=== PATIENT | male | born 1935 | race Caucasian/White ===

== ENCOUNTER 2018-07-26 13:33 | Inpatient (IN) | payer MEDICARE, BC ==
[2018-07-26 14:28] LABS: Bilirubin Negative (Negative); Blood, Urine Moderate (Negative); Clarity CLEAR (Clear); Glucose, Urine (Dipstick) Negative (Negative); Leukocyte Negative (Negative); Nitrite Negative (Negative); Protein, Urine (Dipstick) Trace mg/dL (Neg-Trace); Specific Gravity, Urine 1.023 (1.002-1.036); Urobilinogen 0.2 mg/dL (0.2-1.0)
[2018-07-26 14:34] LABS: Bacteria/HPF None Seen HPF (None Seen); Hyaline Casts/LPF 0-3 HYALINE CAST LPF (0-3 Hyaline); Pathc Cast-AUWi Flag 0.58 (0-2.49); Squamous Epithelial 0-3 HPF (0-3); WBC/HPF 0-3 HPF (0-3)
--- NOTE | 2018-07-26 15:15 | CT ---
CT BRAIN WITHOUT CONTRAST: Date: 07/26/18 HISTORY: Fall. FINDINGS: There are changes of cortical atrophy and chronic small vessel ischemic disease. No evidence of acute infarct, hemorrhage, midline shift, or abnormal extra-axial fluid collections are seen. The ventricu lar size is appropriate and the basilar cisterns are patent. The bony calvarium is intact. The visual ized paranasal sinuses and mastoid air cells are well aerated. IMPRESSION: No CT evidence of acute intracranial process. POS: [facility]
--- NOTE | 2018-07-26 15:25 | CT ---
CT CERVICAL SPINE WITH CORONAL AND SAGITTAL REFORMATIONS: Date: 07/26/18 HISTORY: Fall, neck pain. FINDINGS/IMPRESSION: Cervical lordosis is present. Multilevel degenerative changes are noted in the cervical spine. No fra cture, subluxation, or facet malalignment is seen. There are pleural calcifications in the lung apice s. POS: [facility]
--- NOTE | 2018-07-26 15:31 | CT ---
CT FACIAL BONES WITH CORONAL AND SAGITTAL REFORMATIONS 07/26/18 HISTORY: Fall, facial pain. FINDINGS: No facial bone fractures seen. No temporomandibular dislocation identified. There is mild mucosal d isease in the paranasal sinuses. No air fluid levels are noted in the paranasal sinuses. IMPRESSION: No CT evidence of facial bone fracture. POS: [facility]
--- NOTE | 2018-07-26 15:35 | RAD ---
RIGHT HIP TWO VIEWS: 07/26/18 HISTORY: Right hip pain and deformity. FINDINGS/IMPRESSION: There is a comminuted displaced intertrochanteric fracture of the right proximal femur. POS: [facility]
--- NOTE | 2018-07-26 15:36 | RAD ---
AP PELVIS: 07/26/18 HISTORY: Injury, right hip pain. FINDINGS/IMPRESSION: There is an intertrochanteric fracture of the right proximal femur. POS: [facility]
--- NOTE | 2018-07-26 15:50 | RAD ---
RIGHT HAND 3 VIEWS: Date: 07/26/18 HISTORY: Fall, right hand pain. FINDINGS/IMPRESSION: Degenerative changes are present. No fracture or dislocation is identified. POS: [facility]
--- NOTE | 2018-07-26 15:50 | RAD ---
LEFT HIP 2 VIEWS: Date: 07/26/18 HISTORY: Left hip pain, fall. FINDINGS/IMPRESSION: No acute fracture or dislocation is seen. POS: [facility]
[2018-07-26 15:51] LABS: #Lymphocytes 1.2 thou/uL (1.20-3.40); #Monocytes 1.6 thou/uL (0.11-0.59); %Basophils 0.2 % (0.0-1.0); %Eosinophils 0.1 % (0.0-10.0); %Lymphocytes 8.1 % (21.0-51.0); %Monocytes 10.7 % (0.0-10.0); %Neutrophils 80.9 % (42.0-75.0); Hemoglobin 14.3 g/dL (14.0-18.0); Mean Corpuscular HGB CONC 33.1 g/dL (32.0-36.0); Mean Corpuscular Hemoglobin 31.7 pg (27.0-31.0); Mean Corpuscular Volume 95.9 fL (78.0-98.0); Mean Platelet Volume 8.7 fL (7.4-10.4); Platelet Count 129 thou/uL (130-400); RBC Distribution Width 12.8 % (11.5-14.5); Red Blood Cell (RBC) Count 4.52 mill/uL (4.70-6.10); White Blood Cell (WBC) Count 14.8 thou/uL (4.8-10.8)
--- NOTE | 2018-07-26 15:51 | RAD ---
LEFT HAND 3 VIEWS: Date: 07/26/18 HISTORY: Injury, left hand pain. FINDINGS: There are postop changes of disarticulation at the second MCP joint. Degenerative changes are present . No acute fracture or dislocation is identified. POS: [facility]
[2018-07-26 15:57] LABS: INR-International Normal Ratio 1.6; PTT 30.9 SEC (22.9-36.1); Prothrombin Time 19.1 SEC (12.0-14.7)
--- NOTE | 2018-07-26 16:05 | RAD ---
RIGHT ELBOW FOUR VIEWS: 07/26/18 HISTORY: Patient status post fall with right elbow pain. There are some arthritic changes of the elbow. There is no evidence of joint effusion or fracture. IMPRESSION: No acute injury. POS: [facility]
[2018-07-26 16:08] LABS: ALT (SGPT) 31 U/L (8-55); AST (SGOT) 55 U/L (5-34); Alkaline Phosphatase 66 U/L (40-150); Anion Gap 13 mmol/L (10-20); BUN (Urea Nitrogen) 13 mg/dL (8.4-25.7); Bilirubin, Total 1.9 mg/dL (0.2-1.2); CK (CPK) 932 U/L (30-200); Calc. Creatinine Clearance 0 mL/min (70-130); Calcium 8.6 mg/dL (7.8-10.44); Carbon Dioxide 25 mmol/L (23-31); Chloride 106 mmol/L (98-107); Estimated GFR-MDRD Greater than 90; Globulin 2.9 g/dL (2.4-3.5); Glucose 124 mg/dL (83-110); Potassium 4.4 mmol/L (3.5-5.1); Protein, Total 6.9 g/dL (5.8-8.1); Sodium 140 mmol/L (136-145)
[2018-07-26] MEDS ORDERED: Dextrose 5% in Water 1,000 ML IV PRN (16:30)
[2018-07-26] MEDS ORDERED: Dextrose 50% Abboject 50 ML SYRINGE SLOW IVP PRN (16:30)
[2018-07-26] MEDS ORDERED: traMADol HCl 50 MG TAB PO PRN (16:30)
[2018-07-26] MEDS ORDERED: Morphine 4 MG/ML VIAL SLOW IVP PRN (17:15)
[2018-07-26] MEDS ORDERED: Ketorolac Tromethamine 30 MG/ML VIAL ONE (18:22)
--- NOTE | 2018-07-26 19:01 | PDOC.EVN ---
Event Note - Event Note Event Note: 1 dose of 2.5 mg Vit k - confirmed with Dr Abraham.
[2018-07-26] MEDS ORDERED: Phytonadione 10 MG/ML AMP PO SCH (19:30)
--- NOTE | 2018-07-26 19:36 | HP ---
TRAUMA SURGEON: Dr. Crystal. TRAUMA ACTIVATION: Not applicable. HISTORY OF PRESENT ILLNESS: This is an 83-year-old gentleman, who presented to [facility] via EMS, status post multiple falls. Per the patient, he was leaving dinner last night with a friend when he slipped and fell outside of his car. The patient was able to ambulate after that and went home. He remembers getting undressed and going to bed. However, this morning, he was found on the floor by his neighbor. The patient does not remember the events surrounding the second fall nor does he remember anything until he woke up on the floor. The patient was seen and evaluated in the emergency room and found to have a right hip fracture. Orthopedic Surgery was notified and Trauma Service was asked to admit. Upon my evaluation, the patient has a chief complaint of right hip pain, approximately 4/10. The patient states pain is worsened with movement and improved with pain medications and rest. Family is at bedside. ALLERGIES: NONE. HOME MEDICATIONS: Include Coumadin 5 mg daily. CHRONIC MEDICAL ILLNESSES: Atrial fibrillation; history of non-Hodgkin's lymphoma, in remission; venous reflux, status post vein stripping; coronary artery disease; hypothyroidism; and hypertension. PAST SURGICAL HISTORY: Significant for permanent pacemaker implantation, bilateral lower extremity venous stripping, left index finger amputation, exploratory laparotomy for abdominal mass associated with lymphoma, cholecystectomy, chemo port placement, cataract surgery, Mohs procedure for basal cell carcinoma and squamous cell carcinoma, and kyphoplasty. SOCIAL HISTORY: The patient lives at home. Drinks occasionally. Denies illicit drug use and is a nonsmoker. REVIEW OF SYSTEMS: A 10-point review of systems was performed and essentially negative except as indicated in the HPI. FAMILY HISTORY: Noncontributory in this age patient. PHYSICAL EXAMINATION: VITAL SIGNS: Most recent vital signs include temperature 97.7, pulse 72, respirations 18, O2 saturation 99% on room air, and blood pressure 123/75. GENERAL: Elderly-appearing male, in no acute distress, resting in bed. HEENT: Head, normocephalic. There is contusion over the patient's left eye. Eyes, pupils are PERRLA. Extraocular movements are intact. Oral mucosa dry. NECK: Supple. Trachea is midline. There is no tenderness to palpation. CHEST/PULMONARY: Chest is atraumatic. Nontender to palpation. Normal work of breathing and symmetric rise. CARDIOVASCULAR: Regular rate and rhythm. No obvious murmurs, rubs, or gallops. GASTROINTESTINAL: Abdomen is soft, nontender, and nondistended. MUSCULOSKELETAL: Back exam is reported as being within normal limits. 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 There are bilateral contusions to the dorsal aspects of both hands. There is an abrasion of the posterior right elbow. Lower extremities, right lower extremity is shortened and externally rotated. Range of motion is limited secondary to pain. There is bilateral lower extremity edema, right greater than left. NEURO: No focal deficit is noted. LABORATORY FINDINGS: WBC 14.8, hemoglobin 14.3, hematocrit 43.3, and platelet count 129. INR is 1.6. Sodium 140, potassium 4.4, chloride 106, carbon dioxide 25, BUN 13, creatinine 0.78, and glucose 124. T-bili 1.9, AST 55, and ALT 31. CK 932. Troponin 0.012. Urinalysis with microscopic hematuria and some ketonuria. RADIOGRAPHIC FINDINGS: CT of the C-spine was negative for acute fracture or dislocation. CT of the brain was negative for acute intracranial abnormality. X-ray of the left hip was negative for fracture or dislocation. X-ray of bilateral hands were negative for bony fracture or dislocation. CT of the face was negative for bony fracture. Right elbow x-ray negative for acute fracture or dislocation. X-ray of the pelvis demonstrated a comminuted and displaced right hip fracture. X-ray of the right hip demonstrated the same. ASSESSMENT: 1. Status post multiple falls in the last 24 hours, one of which was unwitnessed. 2. Right hip fracture. 3. Acute traumatic pain. 4. History of atrial fibrillation, on chronic anticoagulation, status post permanent pacemaker. 5. History of hypothyroidism. 6. History of hypertension. 7. History of non-Hodgkin's lymphoma. 8. History of coronary artery disease. 9. Elevated CK. 10. Elevated bilirubin. PLAN: Admit to Trauma Services. The patient should be admitted to the telemetry unit given unwitnessed fall. Once the patient is able to ambulate, we will check orthostatic vital signs. Orthopedic Surgery has been notified of the patient's injury and will see and evaluate the patient. They tentatively plan for operative intervention tomorrow. The patient should be n.p.o. after midnight. Pain management with p.o. and IV analgesics. Gentle IV fluid hydration. Hospital Medicine consult for medical management and syncopal workup. Postoperative PT and OT. DVT and gastritis prophylaxis as appropriate. Follow CK. Plan for admission was discussed with the patient and family at bedside and all questions were answered at the time of this dictation. The patient was seen and evaluated with Dr. Crystal. Job ID: [id number]
[2018-07-26] MEDS: Ketorolac Tromethamine 30 MG/ML VIAL IVP SCH ×2 (19:45→23:12)
[2018-07-26] MEDS: Acetaminophen 500 MG TAB PO SCH ×2 (19:50→23:11)
[2018-07-26] MEDS: traMADol HCl 50 MG TAB PO SCH ×2 (19:50→23:13)
[2018-07-26] MEDS: Famotidine 20 MG TAB PO SCH (20:34)
[2018-07-26] MEDS: Senokot S 8.6-50 MG TAB PO SCH (20:34)
[2018-07-26 20:39] LABS: Magnesium 1.9 mg/dL (1.6-2.6); Phosphorus 3.4 mg/dL (2.3-4.7)
[2018-07-26] MEDS: Sodium Chloride 0.9% 1,000 ML IV SCH (20:43)
[2018-07-26 20:45] LABS: Troponin I 0.029 ng/mL (< 0.028)
[2018-07-26 21:14] LABS: Folate (Folic Acid) 15.2 ng/mL (7.0-31.4)
[2018-07-26 21:59] VITALS: BMI 27.1
--- NOTE | 2018-07-26 22:17 | PRG ---
DATE OF SERVICE: 07/26/2018 SUBJECTIVE: The patient is an 83-year-old male, followed by Dr. Campa with chronic atrial fibrillation, on anticoagulation; diabetes mellitus, type 2; lymphoma; and obstructive sleep apnea, was brought in to the emergency room with an episode of fall. His workup was consistent with right hip fracture. He denies any loss of consciousness. No chest pain, palpitations, lightheadedness, or dizziness prior to the fall reported. He is followed by a lumber cutter. At this time, he is unable to recall the name of his lumber cutter. OBJECTIVE: VITAL SIGNS: Temperature 97.7, respirations 22, pulse rate of 64, blood pressure 163/77, and O2 saturation 97% on room air. GENERAL: An 83-year-old male, in no apparent distress. Pain controlled at this time. HEENT: Head, atraumatic and normocephalic. Sclerae anicteric. No oral lesion. NECK: Supple. No JVD. No carotid bruit. LUNGS: Essentially clear to auscultation bilaterally. No wheezing, rales, or rhonchi. HEART: S1 and S2 present. Irregularly irregular. No heaves or pulsation. There is 2/6 systolic murmur over the mitral area. ABDOMEN: Soft, nontender. Bowel sounds present. EXTREMITIES: No edema or calf tenderness. NEUROLOGY: Grossly nonfocal. Moves all 4 extremities. PSYCHIATRY: Alert, awake, and oriented x3. LABORATORY DATA: Lab findings; EKG by my review showed paced rhythm with underlying atrial fibrillation. CBC showed WBC of 14.8 with hemoglobin 14.3, hematocrit 43.3, and platelets 129. INR 1.6. Troponin 0.012. Repeat troponin 0.029. CRP is 3.42. CK is 932. Total bilirubin is 1.9, BUN 13, and creatinine 0.78. Urinalysis was negative for wbc or bacteria. Cervical spine CT was negative. CT scan of the brain was negative. REVIEW OF SYSTEMS: The patient denies any nausea, vomiting, diarrhea, constipation, or fever. SOCIAL HISTORY: The patient currently lives at home alone. He has good family support. He makes his own decision with the help of his family. He is full code. IMPRESSION: 1.Suspected Near syncope. Patient denies LOC. We will get his pacemaker interrogated. We will also get echocardiogram and carotid Doppler. The patient will be monitored on telemetry. We will recheck labs in a.m. 2. Chronic atrial fibrillation, on anticoagulation. Warfarin is currently on hold for surgery in a.m. He will receive one dose of 2.5 mg vitamin K. Home medications are unclear at this time. We will resume his home medications once confirmed. It is unclear whether the patient is on beta-blockers. 3. Hyperlipidemia. We will resume statins once dose confirmed. 4. Chronically elevated bilirubin. 5. Elevated CK secondary to fall. We will recheck CK in a.m. Continue IV fluids. 6. Diabetes mellitus, type 2, diet controlled. 7. History of lymphoma, completed chemotherapy in 2011. 8. Obstructive sleep apnea. He uses CPAP on and off. We will resume CPAP while in the hospital. 9. Mild intermittent asthma. We will add nebulizer treatment as needed. 10. Hypothyroidism. We will resume levothyroxine once dose confirmed. 11. Plan was discussed with the patient in detail. He stated understanding. Job ID: [id number] [facility]TD[facility]
[2018-07-27] MEDS: traMADol HCl 50 MG TAB PO SCH ×3 (05:22→23:25)
[2018-07-27] MEDS: Ketorolac Tromethamine 30 MG/ML VIAL IVP SCH ×3 (05:24→23:26)
[2018-07-27] MEDS: Acetaminophen 500 MG TAB PO SCH ×3 (05:24→23:25)
[2018-07-27] MEDS: Sodium Chloride 0.9% 1,000 ML IV SCH ×3 (05:31→23:28)
[2018-07-27 05:53] LABS: INR-International Normal Ratio 1.8; Prothrombin Time 20.7 SEC (12.0-14.7)
[2018-07-27 06:11] LABS: ALT (SGPT) 29 U/L (8-55); AST (SGOT) 45 U/L (5-34); Albumin 3.4 g/dL (3.4-4.8); Alkaline Phosphatase 51 U/L (40-150); Anion Gap 12 mmol/L (10-20); BUN (Urea Nitrogen) 20 mg/dL (8.4-25.7); Bilirubin, Total 2.3 mg/dL (0.2-1.2); CK (CPK) 997 U/L (30-200); Calc. Creatinine Clearance 82 mL/min (70-130); Calcium 8.2 mg/dL (7.8-10.44); Carbon Dioxide 26 mmol/L (23-31); Chloride 106 mmol/L (98-107); Estimated GFR-MDRD 86; Globulin 2.4 g/dL (2.4-3.5); Glucose 110 mg/dL (83-110); Potassium 4.5 mmol/L (3.5-5.1); Protein, Total 5.8 g/dL (5.8-8.1); Sodium 139 mmol/L (136-145)
[2018-07-27 06:54] LABS: Band 15 % (5-11); Hemoglobin 11.9 g/dL (14.0-18.0); Lymphocytes 25 % (21-51); MDiff Complete? YES; Mean Corpuscular HGB CONC 33.1 g/dL (32.0-36.0); Mean Corpuscular Hemoglobin 31.5 pg (27.0-31.0); Mean Corpuscular Volume 95.4 fL (78.0-98.0); Mean Platelet Volume 8.9 fL (7.4-10.4); Monocytes 11 % (0-10); Neutrophil 49 % (42-75); PLT Morphology Comment Appears Decreased; Platelet Count 113 thou/uL (130-400); RBC Distribution Width 12.7 % (11.5-14.5); Red Blood Cell (RBC) Count 3.78 mill/uL (4.70-6.10); White Blood Cell (WBC) Count 9.8 thou/uL (4.8-10.8)
[2018-07-27] MEDS ORDERED: Fentanyl 100 MCG/2 ML VIAL ONE ×2 (07:51→15:18)
[2018-07-27 08:55] LABS: INR-International Normal Ratio 1.7; Prothrombin Time 20.3 SEC (12.0-14.7)
[2018-07-27] MEDS ORDERED: Prevnar 13-Val Conj/PF 0.5 ML SYRINGE IM ONE (09:00)
[2018-07-27] MEDS: Polyethylene Glycol 3350 17 GM Packet PO SCH (09:01)
[2018-07-27] MEDS: Senokot S 8.6-50 MG TAB PO SCH ×2 (09:01→20:16)
[2018-07-27] MEDS: Famotidine 20 MG TAB PO SCH ×2 (09:01→20:16)
[2018-07-27 09:34] LABS: Troponin I 0.023 ng/mL (< 0.028)
--- NOTE | 2018-07-27 11:09 | CON ---
DATE OF CONSULTATION: 07/26/2018 HISTORY OF PRESENT ILLNESS: Mr. Funez is an 83-year-old male, status post ground level fall today. The patient is complaining of right hip pain. The patient denied any preceding hip pain. The patient is resting comfortably in bed. History of lymphoma in the past, which is currently in remission. The patient was from his oncologist. The patient states that he just fell, acute pain with ambulating, but it was in [place]. He is an active gentleman. His children are at bedside. PAST MEDICAL HISTORY: Includes cardiac history of coronary artery disease, arrhythmia, AFib, hypothyroidism, and hypertension. PAST SURGICAL HISTORY: Pacemaker. MEDICATIONS: Please see admission list. ALLERGIES: NO KNOWN DRUG ALLERGIES. SOCIAL HISTORY: Drinks socially. Denies drug use. No history of smoking. 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 He lives in [facility], previously lived in [place]. PHYSICAL EXAMINATION: GENERAL: The patient is afebrile, resting comfortably in bed, in no acute distress. EXTREMITIES: Right lower extremity; the patient has a shortened and externally rotated right limb. He has sensation intact at L4 through S1 distributions. He has brisk capillary refill. The patient is able to flex and extend his toes. The patient has no effusion in his knee. The patient has pain with internal and external rotation of his right hip. The patient has radiographs showing a 3- part intertrochanteric hip fracture with a reverse obliquity pattern extending into subtrochanteric region. IMPRESSION: 1. Status post fall. 2. Warfarin therapy for cardia arrhythmia. 3. Right intertrochanteric hip fracture. ASSESSMENT AND PLAN: I spent time with the family at the bedside, discussing operative treatments with a long TFNA nail for treatment of an intertrochanteric with subtrochanteric extension hip fracture. I discussed the risks and benefits of surgery, pain, scar, bleeding, infection, damage to vital structures, decreased range of motion and strength, nonunion, malunion, and need for further surgery. I discussed the risks and benefits to include the mortality associated with about 40%. I discussed the patient careduring the hospitalization, but would require care afterwards. We would keep him potentially touchdown weight bearing depending on the reduction. I discussed that we will have to correct the patient's INR before proceeding with surgery. He understands all this and we will proceed and follow. Job ID: [id number] [facility]ITAL[facility]
--- NOTE | 2018-07-27 11:14 | HP ---
The patient was seen in the emergency room with Yulia Collazo, trauma PA and Eliane Harris, Trauma nurse practitioner. For full details, please see the H and P. In short, Mr. Funez is an 83-year-old man who apparently fell at home. He remembers going to bed last night, but woke up this morning, lying face down on the floor and was unable to rise on his own due to pain in his right hip. He was found by a friend who lives in his guest house and EMS brought him to the emergency room. He had had a fall earlier that night, which he attributes to slipping and gravel as he was trying to get back into his car at a restaurant in [place]. It is unclear how long he was down or how he fell, although he does have some bruising in his left cheek and eye. Workup in the emergency room revealed a comminuted displaced intertrochanteric fracture of the right proximal femur, but head CT and other plain films were unremarkable. CT of the face and cervical spine did not show any acute fractures either. PAST MEDICAL HISTORY: Atrial fibrillation with pacemaker placement, hypothyroidism, venous stasis ulcers, and hypertension. PAST SURGICAL HISTORY: MediPort placement on the right which is still in place and pacemaker on the left. He also had ablation of veins in both of his legs, which allowed the venous stasis ulcers to heal and has not had problems with that since his operation. Left finger amputation. SOCIAL HISTORY: He does not drink, smoke, or use illicit drugs. ALLERGIES: HAS NO KNOWN DRUG ALLERGIES. MEDICATIONS: He is on Coumadin for his heart. PHYSICAL EXAMINATION: Performed and no abnormalities found, except for the contusion to his left cheek and eye and pain in the right hip with foreshortening and internal rotation of that leg and a small abrasion on his elbow. DIAGNOSTIC STUDIES: EKG did not show any acute findings. He has a paced rhythm. White count is elevated at 14.8 and INR is 1.6. AST is mildly elevated at 55 and bilirubin is mildly elevated at 1.9. Creatine kinase is high at 932. The BUN and creatinine are normal. ASSESSMENT AND PLAN: The patient will be admitted to the Trauma Service and resuscitation with IV fluids will be undertaken. Orthopedics has been consulted for his intertrochanteric fracture and if he is medically stable, he will likely undergo operative repair of this tomorrow. Placements at discharge needs to be considered as the patient has had two falls for unknown reasons. The medical workup for syncope will also be undertaken since he cannot give any explanation for his second fall. Job ID: [id number]
--- NOTE | 2018-07-27 11:42 | ULT ---
BILATERAL CAROTID DUPLEX ULTRASOUND: DATE: 07/27/18 HISTORY: Syncope. TECHNIQUE: Graves scale ultrasound with color flow and spectral Doppler imaging of the extracranial carotid artery systems performed. FINDINGS: There is plaque formation on either side. The peak systolic velocity in the right ICA measures 68 cm/second with an end-diastolic velocity of 1 7 cm/second and a systolic ratio of 0.90. The peak systolic velocity in the left ICA measures 71 cm/second with an end-diastolic velocity of 20 cm/second and a systolic ratio of 1.13. Flow in both vertebral arteries remains antegrade. IMPRESSION: No evidence of hemodynamically significant stenosis. POS: [facility]
[2018-07-27] MEDS ORDERED: Morphine 2 MG/ML SYRINGE ONE (14:15)
[2018-07-27] MEDS ORDERED: CEFAZOLIN 2 GM/50 ML BAG ONE (14:16)
[2018-07-27] MEDS ORDERED: Sodium Chloride 0.9% 100 ML ONE (14:16)
[2018-07-27] MEDS ORDERED: Tranexamic Acid 1,000 MG/10 ML VIAL ONE (14:16)
[2018-07-27] MEDS ORDERED: PHENYLEPHRINE-NS 100 MCG/ML 10 ML SYRINGE ONE (15:06)
[2018-07-27] MEDS ORDERED: PROPOFOL 200 MG/20 ML VIAL ONE (15:06)
[2018-07-27] MEDS ORDERED: Lidocaine 1% PF 5 ML VIAL ONE (15:06)
[2018-07-27] MEDS ORDERED: Ondansetron PF 4 MG/2 ML Vial ONE (15:06)
[2018-07-27] MEDS ORDERED: Famotidine/PF 20 mg/2ml Vial ONE (15:11)
[2018-07-27] MEDS ORDERED: Ondansetron HCl/PF 4 MG/2 ML Vial IVP PRN (17:46)
--- NOTE | 2018-07-27 19:25 | RAD ---
RIGHT HIP TWO VIEWS: HISTORY: Intraoperative film. FINDINGS: This shows a Castillo compression type screw and a long-stem intramedullary giorgio stabilizing an anteri or to more subtrochanteric fracture of the right hip, in good position. IMPRESSION: Postoperative films. POS: [facility]
[2018-07-27] MEDS ORDERED: CEFAZOLIN/Water 2 GM/20 ML SYRINGE SLOW IVP SCH (20:02)
--- NOTE | 2018-07-27 22:13 | PRG ---
DATE OF SERVICE: 07/27/2018 SUBJECTIVE: The patient is hospital day #2, status post multiple falls. The patient slipped and fell last night. Also, fell again when he was getting undressed and going to bed and was found again the next morning on the floor by his neighbor. The patient does not remember the events surrounding the second fall. The patient was seen and evaluated in the emergency room, found to have a right hip fracture. The patient is n.p.o. since midnight and then worked up for cardiac clearance for surgery today. The patient had carotid studies and an echocardiogram. The patient is just coming out of the OR and PACU. Slowly waking up. He follows simple commands at this time. OBJECTIVE: VITAL SIGNS: Temperature 98.0, pulse 60, respirations 20, SpO2 of 98% on room air, and blood pressure 138/76. GENERAL: The patient is lying supine, in no distress. RESPIRATORY: Respirations are even and unlabored and equal chest rise. MUSCULOSKELETAL: The patient moves all extremities with good distal pulses. LABORATORY DATA: WBC 9.8, RBC 3.78, hemoglobin 11.9, hematocrit 36.1, and platelets 113. PT 20.3 and INR 1.7. Sodium 139, potassium 4.5, chloride 106, anion gap 12, BUN 20, creatinine 0.85, GFR 86, glucose 110, calcium 8.2. Total bilirubin 2.3, AST 45. CK is 997. Repeat troponin 0.023, trending down. ASSESSMENT AND PLAN: The patient will be moved to surgical ortho floor after recovery in the PACU. We will switch the patient to p.o. pain regimen tomorrow. Hospital Medicine consult for medical management and syncopal workup. Postoperatively, PT and OT. Deep venous thrombosis and gastric prophylaxis is appropriate. We will follow his CK. Case Management will be contacted for help with placement into rehab. This patient was discussed with the attending surgeon. Job ID: [id number]
--- NOTE | 2018-07-27 22:17 | OP ---
DATE OF PROCEDURE: 07/27/2018 PREOPERATIVE DIAGNOSIS: Right intratrochanteric with subtrochanteric extension fracture with 4 parts. POSTOPERATIVE DIAGNOSIS: Right intratrochanteric with subtrochanteric extension fracture with 4 parts. PROCEDURE PERFORMED: Right cephalomedullary nailing, intratrochanteric and subtrochanteric femur fracture. INDUSTRIAL TECHNOLOGY EDUCATION TEACHER: Rick Granados. ANESTHESIOLOGIST: Jadiel. ANESTHESIA: The patient received LMA. ESTIMATED BLOOD LOSS: 150 mL. TOURNIQUET TIME: None. IMPLANTS: Synthes TFNA 114 mm x 130 degree cannulated with 450 mm right, the patient had 5 mm locking screw distally and 110 mm proximal locking screw TFNA Synthes. ANTIBIOTICS: Ancef 2 g and TXA 1 g. COMPLICATIONS: None. HISTORY OF PRESENT ILLNESS: Mr. Funez is an 83-year-old male, who sustained ground level fall with a proximal femur fracture as described above. The patient had an echo performed. INR is little bit high because of his Coumadin. The patient was treated FFP as well as potassium. His INR was corrected to about 1.6 to 1.7. The patient was taken back to the operating suite for an intramedullary nailing and cephalomedullary nailing. We discussed with the patient risks and benefits of the surgery, pain, scar, bleeding, infection, nonunion, malunion, rotational shortening, damage to vital structures, decreased range of motion and strength, need for further surgeries, failure of procedure, continued pain despite surgical intervention. The patient understood these risks and benefits and elected to proceed. DESCRIPTION OF PROCEDURE: Time-out was performed designating the patient's right lower extremity as the operative site, based on site, consents, and markings. After time-out, the patient's lower extremities was prepped and draped in a sterile fashion. He was then placed on fracture table in traction. The patient had his leg in traction. The patient had a small lesser trochanter piece and the neck was and there was a large trochanter piece with distal shaft for 4 parts. We used a ball-spike pusher as well as the Kacy to help with rotation of the proximal segments for apposition. We attempted multiple different positioning to include an arm on the opposite, post a crutch and ultimately we ended up using just the F-tool to help with our reduction. We started our procedure after we performed a time-out, placed a ball-spike pusher anteriorly to push down the lateral segment to help with aligning the lateral aspect of the femur. We placed our guide pin one time to push it more anteriorly. We drilled position like the overall line of position passed our guide giorgio. It was little bit apex anterior, so we used finger to help position as well to help with the manipulation of proximal segment, which helps a little bit with our proximal segment and extension. We then placed our guidewire in position and we measured. We measured for a 40, we then reamed and reamed up to saw that the canal actually easily took a 14, so we reamed up to 16.5 for better fit given the patient's bone size and strength. We then came back and we placed our nail into position under fluoroscopic guidance. After positioning this, we then made another stab incision just off to help with our neck position that was keeping little bit apex anterior. We used a ball-spike pusher to help with that deformity. We placed our guide pin across. We were in a posterior position. Be happy with after 2 to 3 passes positioning of our pin within the head on AP and lateral radiographs. We then drilled and tapped and put in a 110 mm proximal locking screw. We took off traction. We were happy with overall. We compressed down and put our locking mechanism down one-half turn to allow the hip to slide. Being happy with the overall alignment of the hip on AP and lateral radiographs and good compression using slight valgus. We then moved distally. We made a stab incision, came down at the proximal segment to allow no compression, placed a screw from lateral to medial, measured and put in a 5 x 64 mm screw. We washed all this and closed with 0, 2-0, and javier. The patient will be weightbearing as tolerated. He will be followed inhouse by Trauma and Ortho. We potentially considered for rehab depending on his postoperative course. The patient will be weightbearing as tolerated. Receive antibiotics for 24 hours. Job ID: [id number]
[2018-07-27] MEDS: CEFAZOLIN 2 GM/50 ML-DEXTROSE 2 GM in Premix Bag 1 BAG IVPB SCH (23:28)
[2018-07-28 06:15] LABS: #Eosinphils 0.1 thou/uL (0.0-0.7); #Lymphocytes 1.7 thou/uL (1.20-3.40); #Monocytes 1.3 thou/uL (0.11-0.59); #Neutrophils 5.9 thou/uL (1.40-6.50); %Basophils 0.4 % (0.0-1.0); %Eosinophils 1.5 % (0.0-10.0); %Lymphocytes 19.2 % (21.0-51.0); %Monocytes 14.1 % (0.0-10.0); %Neutrophils 64.8 % (42.0-75.0); Mean Corpuscular HGB CONC 33.6 g/dL (32.0-36.0); Mean Corpuscular Hemoglobin 32.3 pg (27.0-31.0); Mean Corpuscular Volume 96.3 fL (78.0-98.0); Mean Platelet Volume 8.8 fL (7.4-10.4); Platelet Count 99 thou/uL (130-400); RBC Distribution Width 12.6 % (11.5-14.5)
[2018-07-28 06:16] LABS: INR-International Normal Ratio 1.7; Prothrombin Time 19.8 SEC (12.0-14.7)
[2018-07-28] MEDS: traMADol HCl 50 MG TAB PO SCH ×4 (06:28→17:52)
[2018-07-28] MEDS: Ketorolac Tromethamine 30 MG/ML VIAL IVP SCH ×4 (06:29→17:55)
[2018-07-28] MEDS: Acetaminophen 500 MG TAB PO SCH ×4 (06:29→17:53)
[2018-07-28 06:34] LABS: ALT (SGPT) 24 U/L (8-55); AST (SGOT) 43 U/L (5-34); Alkaline Phosphatase 46 U/L (40-150); Anion Gap 9 mmol/L (10-20); BUN (Urea Nitrogen) 20 mg/dL (8.4-25.7); Bilirubin, Total 1.1 mg/dL (0.2-1.2); CK (CPK) 914 U/L (30-200); Calc. Creatinine Clearance 76 mL/min (70-130); Calcium 7.8 mg/dL (7.8-10.44); Carbon Dioxide 27 mmol/L (23-31); Chloride 106 mmol/L (98-107); Estimated GFR-MDRD 79; Globulin 2.2 g/dL (2.4-3.5); Glucose 103 mg/dL (83-110); Magnesium 1.6 mg/dL (1.6-2.6); Potassium 4.2 mmol/L (3.5-5.1); Protein, Total 5.2 g/dL (5.8-8.1); Sodium 138 mmol/L (136-145)
[2018-07-28] MEDS: CEFAZOLIN 2 GM/50 ML-DEXTROSE 2 GM in Premix Bag 1 BAG IVPB SCH (08:11)
[2018-07-28] MEDS: Polyethylene Glycol 3350 17 GM Packet PO SCH (08:14)
[2018-07-28] MEDS: Senokot S 8.6-50 MG TAB PO SCH ×2 (08:15→21:18)
[2018-07-28] MEDS: Famotidine 20 MG TAB PO SCH ×2 (08:15→21:19)
[2018-07-28] MEDS ORDERED: Zolpidem Tartrate 5 MG TAB PO PRN (08:32)
[2018-07-28] MEDS: Sodium Chloride 0.9% 1,000 ML IV SCH ×2 (11:28→21:41)
--- NOTE | 2018-07-28 17:43 | PRG ---
DATE OF SERVICE: 07/28/2018 SUBJECTIVE: An 83-year-old, who presented to the ER via EMS, status post multiple falls. The patient was seen and evaluated in the ER and found to have a right hip fracture. The patient is postoperative day one, ORIF, right hip. The patient had no overnight events. The patient was up, walking with physical therapy, was able to walk 40 feet with no problems. OBJECTIVE: VITAL SIGNS: Temperature 98.0, pulse 62, respirations are 20, SpO2 96% on room air, and blood pressure 112/65. GENERAL: The patient is awake, alert, sitting up in bed. No distress. HEENT: Atraumatic, trachea is midline. No JVD. RESPIRATORY: Respirations are even and unlabored with equal chest rise and fall. MUSCULOSKELETAL: The patient moves all extremities with good distal pulses. There is mild pedal edema, worse greater right than left. NEUROLOGIC: There are no focal deficits noted. LABORATORY DATA: WBC 9.0, RBC 3.10, hemoglobin 10.0, hematocrit 29.8, and platelets are 99. PT 19.8 and INR 1.7. Sodium 138, potassium 4.2, chloride 106, BUN 20, creatinine 0.91, GFR 79, glucose 103, calcium 7.8, magnesium 1.6, total bilirubin 1.1, AST 43, ALT 24, alkaline phos 46, and CK 914. ASSESSMENT: 1. Status post multiple falls. 2. Right hip fracture, postoperative day #1. 3. Acute traumatic pain. 4. History of atrial fibrillation, on chronic anticoagulation, status post permanent pacemaker. 5. History of hypothyroidism. 6. History of hypertension. 7. History of non-Hodgkin's lymphoma. 8. History of coronary artery disease. 9. Elevated CK, but trending down. 10. Elevated bilirubin. PLAN: Continue physical therapy and pain regimen. Plan, at the patient's and family's request, is for him to be discharged home with home health. Case management working on status. We will discontinue patient's Toradol and place him on p.o. NSAIDs. We will plan to restart the patient's Coumadin tomorrow. IV fluids are stopped. The patient was discussed with the attending surgeon. Job ID: [id number]
--- NOTE | 2018-07-28 20:58 | PDOC.PN ---
- Subjective Encounter Start Date: 07/28/18 Encounter Start Time: 12:00 Patient seen and examined for med mngt. Pain controlled. No CP/SOB/ palpitations. No new complaints. No overnight events - Objective MAR Reviewed: Yes Vital Signs & Weight: Vital Signs (12 hours) Temp Pulse Pulse Resp BP BP BP 07/28/18 20:32 98.5 F 65 20 07/28/18 16:00 97.5 F L 56 L 12 07/28/18 12:00 97.7 F 63 16 07/28/18 09:42 61 112/65 116/65 130/68 BP Pulse Ox Pulse Ox 07/28/18 20:32 157/70 H 97 07/28/18 16:00 126/81 93 L 07/28/18 12:00 120/65 96 07/28/18 09:42 95 Weight Weight 200 lb 4.8 oz I&O: 07/27/18 07/28/18 07/29/18 06:59 06:59 06:59 Intake Total 1500 1731.5 1500 Output Total 250 500 Balance 1250 1231.5 1500 Result Diagrams: 07/29/18 04:45 07/29/18 04:45 Phys Exam - Physical Examination Constitutional: NAD Respiratory: no wheezing, no rhonchi Cardiovascular: RRR, no rub Gastrointestinal: soft, non-tender, positive bowel sounds Neurological: moves all 4 limbs Dx/Plan - Plan DVT proph w/SCDs 1. ?Near syncope vs [facility] Fall. 2. Chronic atrial fibrillation. 3. Hyperlipidemia. 4. Chronically elevated bilirubin. 5. Rhabdomyolysis secondary to fall. 6. Diabetes mellitus, type 2, diet controlled. 7. History of lymphoma, completed chemotherapy in 2011. 8. Obstructive sleep apnea. 9. Mild intermittent asthma. 10. Hypothyroidism. PLAN: Echo and Carotid reviewed Warfarin will be restarted in AM Cont Levothyroxine Cont current meds as below CK improving Will hold Statins due to elevated CK - Can probably restarted at ms. Review of Systems - Review of Systems Respiratory: negative: Cough, Dry, Shortness of Breath, Hemoptysis, SOB with Excertion, Pleuritic Pain, Sputum, Wheezing Cardiovascular: negative: chest pain, palpitations, orthopnea, paroxysmal nocturnal dyspnea, edema, light headedness, other Gastrointestinal: negative: Nausea, Vomiting, Abdominal Pain, Diarrhea, Constipation, Melena, Hematochezia, Other - Medications/Allergies Allergies/Adverse Reactions: Allergies Allergy/AdvReac Type Severity Reaction Status Date / Time No Known Drug Allergies Allergy Verified 11/30/15 16:55 Medications: Current Medications Acetaminophen (Tylenol) 1,000 mg PO Q6HR [facility] Last Admin: 07/28/18 17:53 Dose: 1,000 mg Albuterol/Ipratropium (Duoneb) 3 ml NEB Q4H PRN PRN Reason: Wheezing Albuterol/Ipratropium (Duoneb) 3 ml NEB [id number] PRN PRN Reason: SOB &/or Wheezing Ascorbic Acid (Vitamin C) 500 mg PO BID [facility] Atorvastatin Calcium (Lipitor) 20 mg PO HS [facility] Dextrose/Water (Dextrose 50%) 25 gm SLOW IVP PRN PRN PRN Reason: Hypoglycemia Diltiazem HCl (Cardizem) 30 mg PO Q6H PRN PRN Reason: HR >120 sustained Famotidine (Pepcid) 20 mg PO BID [facility] Last Admin: 07/28/18 08:15 Dose: 20 mg Ferrous Sulfate (Feosol) 325 mg PO BID-[facility] Glucagon (Glucagon) 1 mg IM PRN PRN PRN Reason: Hypoglycemia Dextrose/Water (D5w) 1,000 mls @ 0 mls/hr IV .Q0M PRN PRN Reason: Hypoglycemia Sodium Chloride (Normal Saline 0.9%) 1,000 mls @ 100 mls/hr IV .Q10H [facility] Last Admin: 07/28/18 11:28 Dose: Not Given Ketorolac Tromethamine (Toradol) 15 mg IVP Q6HR [facility] Stop: 07/31/18 18:01 Last Admin: 07/28/18 17:55 Dose: Not Given Levothyroxine Sodium (Synthroid) 25 mcg PO 0600 [facility] Miscellaneous Medication (Pharmacy To Dose) 1 each PO .WARFARIN [facility] Morphine Sulfate (Morphine) 2 mg SLOW IVP Q4H PRN PRN Reason: SEVERE BREAKTHRU PAIN Last Admin: 07/27/18 20:15 Dose: 2 mg Polyethylene Glycol (Miralax) 17 gm PO DAILY [facility] Last Admin: 07/28/18 08:14 Dose: 17 gm Senna/Docusate Sodium (Senokot S) 2 tab PO BID [facility] Last Admin: 07/28/18 08:15 Dose: 2 tab Sodium Chloride (Flush - Normal Saline) 10 ml IVF PRN PRN PRN Reason: Saline Flush Last Admin: 07/26/18 20:34 Dose: 10 ml Tramadol HCl (Ultram) 50 mg PO Q6HR [facility] Last Admin: 07/28/18 17:52 Dose: 50 mg Tramadol HCl (Ultram) 50 mg PO Q6H PRN PRN Reason: Breakthrough Pain Warfarin Sodium (Coumadin) 5 mg PO Aroldo [facility] Warfarin Sodium (Coumadin) 2.5 mg PO Debbie [facility] Zolpidem Tartrate (Ambien) 5 mg PO HS PRN PRN Reason: Insomnia
[2018-07-28] MEDS ORDERED: WARFARIN PO SCH (21:00)
[2018-07-28] MEDS ORDERED: Atorvastatin Calcium 20 MG TAB PO SCH (21:00)
[2018-07-28] MEDS: Ascorbic Acid 500 mg Chewable Tablet PO SCH (21:17)
[2018-07-29] MEDS: traMADol HCl 50 MG TAB PO SCH ×4 (01:00→17:22)
[2018-07-29] MEDS: Ketorolac Tromethamine 30 MG/ML VIAL IVP SCH ×4 (01:00→17:20)
[2018-07-29] MEDS: Acetaminophen 500 MG TAB PO SCH ×4 (01:00→17:20)
[2018-07-29 05:56] LABS: #Basophils 0.1 thou/uL (0.0-0.2); #Eosinphils 0.3 thou/uL (0.0-0.7); #Lymphocytes 1.7 thou/uL (1.20-3.40); #Monocytes 0.9 thou/uL (0.11-0.59); #Neutrophils 5.3 thou/uL (1.40-6.50); %Basophils 0.9 % (0.0-1.0); %Eosinophils 3.7 % (0.0-10.0); %Lymphocytes 20.1 % (21.0-51.0); %Monocytes 11.4 % (0.0-10.0); %Neutrophils 63.8 % (42.0-75.0); Hemoglobin 9.5 g/dL (14.0-18.0); Mean Corpuscular HGB CONC 33.9 g/dL (32.0-36.0); Mean Corpuscular Hemoglobin 32.8 pg (27.0-31.0); Mean Corpuscular Volume 96.8 fL (78.0-98.0); Mean Platelet Volume 8.9 fL (7.4-10.4); Platelet Count 99 thou/uL (130-400); RBC Distribution Width 12.7 % (11.5-14.5); Red Blood Cell (RBC) Count 2.91 mill/uL (4.70-6.10); White Blood Cell (WBC) Count 8.2 thou/uL (4.8-10.8)
[2018-07-29 05:57] LABS: INR-International Normal Ratio 1.7; Prothrombin Time 19.8 SEC (12.0-14.7)
[2018-07-29 06:20] LABS: ALT (SGPT) 21 U/L (8-55); AST (SGOT) 43 U/L (5-34); Albumin 2.9 g/dL (3.4-4.8); Alkaline Phosphatase 58 U/L (40-150); Anion Gap 11 mmol/L (10-20); BUN (Urea Nitrogen) 19 mg/dL (8.4-25.7); Bilirubin, Total 0.9 mg/dL (0.2-1.2); CK (CPK) 635 U/L (30-200); Calc. Creatinine Clearance 79 mL/min (70-130); Calcium 7.8 mg/dL (7.8-10.44); Carbon Dioxide 26 mmol/L (23-31); Chloride 104 mmol/L (98-107); Estimated GFR-MDRD 82; Globulin 2.4 g/dL (2.4-3.5); Glucose 159 mg/dL (83-110); Potassium 3.9 mmol/L (3.5-5.1); Protein, Total 5.3 g/dL (5.8-8.1); Sodium 137 mmol/L (136-145)
[2018-07-29] MEDS: Levothyroxine Sodium 25 MCG TAB PO SCH (06:28)
[2018-07-29] MEDS: Senokot S 8.6-50 MG TAB PO SCH ×2 (07:53→21:01)
[2018-07-29] MEDS: Famotidine 20 MG TAB PO SCH ×2 (07:53→21:01)
[2018-07-29] MEDS: Ferrous Sulfate 325 MG TAB PO SCH ×2 (07:53→17:17)
[2018-07-29] MEDS: Ascorbic Acid 500 mg Chewable Tablet PO SCH ×2 (07:53→21:01)
[2018-07-29] MEDS: Polyethylene Glycol 3350 17 GM Packet PO SCH (07:54)
[2018-07-29] MEDS: Sodium Chloride 0.9% 1,000 ML IV SCH ×2 (07:55→17:29)
--- NOTE | 2018-07-29 13:15 | RAD ---
RIGHT KNEE 4 VIEWS: Date: 07/29/18 HISTORY: Right knee pain. FINDINGS/IMPRESSION: Degenerative changes are seen in the right knee. There are postop changes and metallic hardware in th e visualized portions of the femur. No acute fracture or dislocation is identified. POS: [facility]
--- NOTE | 2018-07-29 14:15 | PRG ---
DATE OF SERVICE: 07/29/2018 The patient remains on the surgical floor. He had no issues overnight. He states his pain is controlled. He is tolerating a diet. He is status post a right hip fracture and he is postop day #2. He has been making remarkable progress with physical and occupational therapy, and his postop day 1 has already progressed to walking 100 feet with his rolling walker. PHYSICAL EXAMINATION: VITAL SIGNS: Temperature is 97.9, heart rate 64, blood pressure 145/78, respirations 20, and oxygen saturation 94% on room air. GENERAL: The patient is awake, alert, and oriented x3. [employer] coma Scale is 15. HEENT: Unremarkable. LUNGS: Clear to auscultation with good inspiratory and expiratory effort. HEART: Regular rate and rhythm. ABDOMEN: Soft, flat, nontender with active bowel sounds. EXTREMITIES: Neurovascularly intact x4. Postop dressing is clean, dry, and intact. LABORATORY FINDINGS: White blood cell count 8.2, hemoglobin 9.5, hematocrit 28.1, platelets 99. Sodium 137, potassium 3.9, chloride 104, CO2 of 26, BUN 19, creatinine 0.88, glucose 159. LFTs remained trending downward. There were no radiographs reviewed this morning. ASSESSMENT AND PLAN: 1. Status post multiple falls. 2. Right hip fracture, postop day #2. PLAN: Plan will be to resume his Coumadin for his chemical VTE prophylaxis. Continue pain control, physical and occupational therapy, and likely discharge home tomorrow with home health per his and family's desires. The evaluation and examination were done with Dr. Crystal this morning during rounds. Job ID: [id number]
--- NOTE | 2018-07-29 14:46 | PDOC.PN ---
- Subjective Encounter Start Date: 07/29/18 Encounter Start Time: 10:30 Patient seen and examined for med mngt. No new complaints. No overnight events - Objective MAR Reviewed: Yes Vital Signs & Weight: Vital Signs (12 hours) Temp Pulse Resp BP BP Pulse Ox 07/29/18 11:26 98.2 F 68 22 H 126/68 96 07/29/18 07:14 97.9 F 64 20 145/78 H 94 L 07/29/18 04:35 95 07/29/18 03:41 98.4 F 92 16 123/63 95 Weight Weight 200 lb 4.8 oz I&O: 07/28/18 07/29/18 07/30/18 06:59 06:59 06:59 Intake Total 1731.5 1521.0 1280 Output Total 500 100 300 Balance 1231.5 1421.0 980 Result Diagrams: 07/29/18 04:45 07/29/18 04:45 Phys Exam - Physical Examination Constitutional: NAD Neurological: non-focal, moves all 4 limbs Psychiatric: A&O x 3 Dx/Plan - Plan DVT proph w/SCDs 1. ?Near syncope vs [facility] Fall. Echo - normal EF. 2. Chronic atrial fibrillation. 3. Hyperlipidemia. 4. Chronically elevated bilirubin. 5. Rhabdomyolysis secondary to fall. 6. Diabetes mellitus, type 2, diet controlled. 7. History of lymphoma, completed chemotherapy in 2011. 8. Obstructive sleep apnea. 9. Mild intermittent asthma. 10. Hypothyroidism. 11. Thrombocytopenia. PLAN: Warfarin restarted CBC/PT/INR in AM Cont current meds as below Statins on hold due to elevated CK - Can be restarted at mi. Will follow PRN. Review of Systems - Review of Systems Respiratory: negative: Cough, Dry, Shortness of Breath, Hemoptysis, SOB with Excertion, Pleuritic Pain, Sputum, Wheezing Cardiovascular: negative: chest pain, palpitations, orthopnea, paroxysmal nocturnal dyspnea, edema, light headedness, other - Medications/Allergies Allergies/Adverse Reactions: Allergies Allergy/AdvReac Type Severity Reaction Status Date / Time No Known Drug Allergies Allergy Verified 11/30/15 16:55 Medications: Current Medications Acetaminophen (Tylenol) 1,000 mg PO Q6HR [facility] Last Admin: 07/29/18 12:32 Dose: 1,000 mg Albuterol/Ipratropium (Duoneb) 3 ml NEB Q4H PRN PRN Reason: Wheezing Albuterol/Ipratropium (Duoneb) 3 ml NEB [id number] PRN PRN Reason: SOB &/or Wheezing Ascorbic Acid (Vitamin C) 500 mg PO BID [facility] Last Admin: 07/29/18 07:53 Dose: 500 mg Atorvastatin Calcium (Lipitor) 20 mg PO HS [facility] Last Admin: 07/28/18 21:18 Dose: 20 mg Dextrose/Water (Dextrose 50%) 25 gm SLOW IVP PRN PRN PRN Reason: Hypoglycemia Diltiazem HCl (Cardizem) 30 mg PO Q6H PRN PRN Reason: HR >120 sustained Famotidine (Pepcid) 20 mg PO BID [facility] Last Admin: 07/29/18 07:53 Dose: 20 mg Ferrous Sulfate (Feosol) 325 mg PO BID[facility] Last Admin: 07/29/18 07:53 Dose: 325 mg Glucagon (Glucagon) 1 mg IM PRN PRN PRN Reason: Hypoglycemia Dextrose/Water (D5w) 1,000 mls @ 0 mls/hr IV .Q0M PRN PRN Reason: Hypoglycemia Sodium Chloride (Normal Saline 0.9%) 1,000 mls @ 100 mls/hr IV .Q10H [facility] Last Admin: 07/29/18 07:55 Dose: Not Given Ketorolac Tromethamine (Toradol) 15 mg IVP Q6HR [facility] Stop: 07/31/18 18:01 Last Admin: 07/29/18 12:33 Dose: 15 mg Lactulose (Lactulose) 30 gm PO NOW [facility] Stop: 07/29/18 16:00 Levothyroxine Sodium (Synthroid) 25 mcg PO 0600 [facility] Last Admin: 07/29/18 06:28 Dose: 25 mcg Miscellaneous Medication (Pharmacy To Dose) 1 each PO .WARFARIN [facility] Polyethylene Glycol (Miralax) 17 gm PO DAILY [facility] Last Admin: 07/29/18 07:54 Dose: 17 gm Senna/Docusate Sodium (Senokot S) 2 tab PO BID [facility] Last Admin: 07/29/18 07:53 Dose: 2 tab Sodium Chloride (Flush - Normal Saline) 10 ml IVF PRN PRN PRN Reason: Saline Flush Last Admin: 07/29/18 06:30 Dose: 10 ml Tramadol HCl (Ultram) 50 mg PO Q6HR [facility] Last Admin: 07/29/18 12:32 Dose: 50 mg Tramadol HCl (Ultram) 50 mg PO Q6H PRN PRN Reason: Breakthrough Pain Warfarin Sodium (Coumadin) 5 mg PO SuTuThSa [facility] Warfarin Sodium (Coumadin) 2.5 mg PO MoWeFr [facility] Zolpidem Tartrate (Ambien) 5 mg PO HS PRN PRN Reason: Insomnia
[2018-07-29] MEDS ORDERED: Warfarin Sodium 5 MG TAB PO SCH (17:00)
[2018-07-30] MEDS ORDERED: Bisacodyl 5 MG TAB PO PRN (00:02)
[2018-07-30] MEDS ORDERED: Bisacodyl 10 MG SUPP PR PRN (00:02)
[2018-07-30] MEDS ORDERED: Milk Of Magnesia 30 ML UDCUP PO PRN (00:03)
[2018-07-30] MEDS: Acetaminophen 500 MG TAB PO SCH ×3 (00:32→12:25)
[2018-07-30] MEDS: traMADol HCl 50 MG TAB PO SCH ×3 (00:33→12:25)
[2018-07-30] MEDS: Ketorolac Tromethamine 30 MG/ML VIAL IVP SCH ×3 (00:34→11:40)
[2018-07-30] MEDS: Sodium Chloride 0.9% 1,000 ML IV SCH (04:07)
[2018-07-30] MEDS: Levothyroxine Sodium 25 MCG TAB PO SCH (06:04)
[2018-07-30] MEDS: Ascorbic Acid 500 mg Chewable Tablet PO SCH (09:24)
[2018-07-30] MEDS: Ferrous Sulfate 325 MG TAB PO SCH (09:24)
[2018-07-30] MEDS: Famotidine 20 MG TAB PO SCH (09:24)
[2018-07-30] MEDS: Senokot S 8.6-50 MG TAB PO SCH (09:25)
[2018-07-30] MEDS: Polyethylene Glycol 3350 17 GM Packet PO SCH (09:26)
[2018-07-30 10:28] LABS: #Eosinphils 0.3 thou/uL (0.0-0.7); #Lymphocytes 1.1 thou/uL (1.20-3.40); #Monocytes 0.9 thou/uL (0.11-0.59); #Neutrophils 6.8 thou/uL (1.40-6.50); %Basophils 0.5 % (0.0-1.0); %Lymphocytes 12.3 % (21.0-51.0); %Neutrophils 74.3 % (42.0-75.0); Hemoglobin 9.8 g/dL (14.0-18.0); Mean Corpuscular HGB CONC 33.4 g/dL (32.0-36.0); Mean Corpuscular Hemoglobin 32.1 pg (27.0-31.0); Mean Corpuscular Volume 96.1 fL (78.0-98.0); Mean Platelet Volume 8.2 fL (7.4-10.4); Platelet Count 133 thou/uL (130-400); RBC Distribution Width 12.7 % (11.5-14.5); Red Blood Cell (RBC) Count 3.04 mill/uL (4.70-6.10); White Blood Cell (WBC) Count 9.1 thou/uL (4.8-10.8)
[2018-07-30 10:34] LABS: INR-International Normal Ratio 1.6; Prothrombin Time 18.9 SEC (12.0-14.7)
[2018-07-30 11:42] VITALS: BP 161/63; TEMP 97.7
[2018-07-30] MEDS ORDERED: Warfarin Sodium 2.5 MG TAB PO SCH (17:00)
[2018-07-30] MEDS ORDERED: Warfarin Sodium 5 MG TAB PO SCH (17:00)
--- NOTE | 2018-07-31 02:46 | DIS ---
DATE OF ADMISSION: 07/26/2018 DATE OF DISCHARGE: 07/30/2018 ADMISSION DIAGNOSES: 1. Status post multiple falls within the last 24 hours. 2. Right hip fracture. 3. History of atrial fibrillation on chronic anticoagulation, status post permanent pacemaker. CONSULTATIONS: Orthopedics, Dr. Abraham. PROCEDURE: Right cephalomedullary nailing, intertrochanteric and subtrochanteric femur fracture on the right. SUMMARY: The patient is an 83-year-old man, who reportedly had multiple falls prior to arriving to the emergency department, where he underwent evaluation and examination, was noted to have right hip fracture. Due to his Coumadin use, he would have his procedure the following day which he tolerated well. The patient was impressively motivated and progressed very rapidly with physical therapy. He and his family asked that he be discharged home with home health. The patient's labs were followed to ensure that his hemoglobin and hematocrit remained stable, then he was resumed on his Coumadin. One final check of his H and H verified that everything was stable and he was able to be discharged home with followup with his primary care provider in 1 week to check his INR and he will follow up in [address] Abraham. The patient may follow up with trauma clinic if needed. At the time of discharge, the patient was tolerating a diet. He was ambulatory with assistance only using a rolling walker. His pain was controlled. His bowel function had returned. Job ID: [id number]
== END 2018-07-30 14:03 | disposition home health service (06) | DRG 481 ==
LOC: ERS 13:33 → 2NO 16:45 → SURG B 07-27 18:52
PROVIDERS: ADMIT Surgery; ATTEND Surgery
PROC: 0QS636Z Reposition Right Upper Femur with Intramedullary Internal Fixation Device, Percutaneous Approach (ICD-10-PCS; principal; 2018-07-27)
PROC: 30233K1 Transfusion of Nonautologous Frozen Plasma into Peripheral Vein, Percutaneous Approach (ICD-10-PCS; 2018-07-27)
DX: S72.141A Displaced intertrochanteric fracture of right femur, initial encounter for closed fracture (principal); M62.82 Rhabdomyolysis; I48.2 Chronic atrial fibrillation; S72.21XA Displaced subtrochanteric fracture of right femur, initial encounter for closed fracture; E03.9 Hypothyroidism, unspecified; I10 Essential (primary) hypertension; I25.10 Atherosclerotic heart disease of native coronary artery without angina pectoris; G89.11 Acute pain due to trauma; G47.33 Obstructive sleep apnea (adult) (pediatric); J45.20 Mild intermittent asthma, uncomplicated; D69.6 Thrombocytopenia, unspecified; Z85.72 Personal history of non-Hodgkin lymphomas; Z79.01 Long term (current) use of anticoagulants; Z79.899 Other long term (current) drug therapy; Z89.022 Acquired absence of left finger(s); Z95.0 Presence of cardiac pacemaker; W18.39XA Other fall on same level, initial encounter
CPT/HCPCS: 36415; 36430; 70450; 70486; 72125; 72170; 76001; 80053; 81003; 81015; 82550; 82607; 82746; 83735; 84100; 84484; 85025; 85610; 85730; 86140; 86850; 86900; 86901; 87040; 87149; 93005; 93306; 93880; 96374; C1713; C1769; G0390; G8978-GP-CL; G8979-GP-CJ; G8987-GO-CJ; G8988-GO-CI; J0131; J1885; J2001; J2270; J2405; J2704; J3010; J3430; J7050; P9059; S0028

== ENCOUNTER 2019-02-12 10:38 | Outpatient (CLI) | payer MEDICARE, BC ==
--- NOTE | 2019-02-12 14:22 | CT ---
RIGHT LOWER EXTREMITY CT SCAN WITHOUT IV CONTRAST: Date: 02/12/19 HISTORY: Closed, nondisplaced fracture of the medial condyle of the right femur. COMPARISON: Knee x-ray 07/29/18. FINDINGS: There is a hip screw and intramedullary giorgio stabilizing the right femur with a nonunited/significant incompletely united intertrochanteric fracture of the right femur. Distally, at the level of the knee , there is a questionable hairline cortical disruption of the medial femoral condyle. There is no delores dence for transfemoral fracture. Prominent bipartite patella laterally. Heterogeneous bony deminerali zation. Very large joint effusion with suprapatellar joint distention. This joint does not contain fa t. Minimal nonspecific subcutaneous fat stranding. IMPRESSION: 1. Incomplete/nonunion intertrochanteric fracture stabilized with hip nail and elongated intramedull erinn giorgio stabilizing the femur. 2. Questionable hairline cortical disruption of the medial femoral condyle without evidence for an a ssociated transfemoral fracture. Very large joint effusion. Other findings as above. POS: [facility]
== END 2019-02-12 10:39 | disposition home or self-care (01) ==
LOC: SCSCT 10:38
PROVIDERS: ATTEND Orthopaedic Surgery
DX: S72.434A Nondisplaced fracture of medial condyle of right femur, initial encounter for closed fracture (principal)

== ENCOUNTER 2019-09-22 10:46 | Outpatient (CLI) | payer MEDICARE, BC ==
--- NOTE | 2019-09-22 13:58 | CT ---
EXAM: RIGHT LOWER EXTREMITY CT SCAN WITHOUT IV CONTRAST: 09/22/19 HISTORY: Right hip pain, prior right femoral fracture with intramedullary giorgio and internal fixation. COMPARISON: 02/12/19 FINDINGS: There has been some progressive healing of the more posterior component of the subtrochanteric portio n of the fracture. There is some persistent incomplete healing of the mid portion of the intertrochan teric fracture and anterior component. Again noted is a fracture of the distal screws stabilizing the distal femoral metaphysis region. No significant change in alignment. IMPRESSION: Incomplete healing of the intertrochanteric fracture of the right femur with some progressive healing of some of the more posterior component. No significant change in alignment. No significant new proc ess. POS: [facility]
== END 2019-09-22 10:47 | disposition home or self-care (01) ==
LOC: BICCT 10:46
PROVIDERS: ATTEND Orthopaedic Surgery
DX: M25.551 Pain in right hip (principal); S72.141G Displaced intertrochanteric fracture of right femur, subsequent encounter for closed fracture with delayed healing